=== PATIENT | male | born 1980 | race Caucasian/White ===

== ENCOUNTER 2016-04-24 10:36 | Emergency (ER) | payer OTHER ==
[2016-04-24 11:41] VITALS: BP 124/74
--- NOTE | 2016-04-24 12:02 | UC ---
Complaint Male HPI - HPI Summary HPI Summary: patient complaining of increased penile pain over the last week, has had a thick white discharge from the penis. denies fever or malaise, lowback pain or abdominal pain. His girlfriend has a yeast infection. - History of Current Complaint Chief Complaint: UCGU Stated Complaint: URINARY COMPLAINT Time Seen by Provider: 04/24/16 11:31 Hx Obtained From: Patient Onset/Duration: Sudden Onset, Lasting Days Timing: Constant Severity Initially: Mild Severity Currently: Moderate Pain Intensity: 6 Pain Scale Used: 0-10 Numeric Location: Penis Character: Burning Aggravating Factor(s): Voiding Alleviating Factor(s): Nothing - Risk Factors Testicular Torsion: Negative - Allergies/Home Medications Allergies/Adverse Reactions: Allergies Allergy/AdvReac Type Severity Reaction Status Date / Time Codeine Allergy Nausea And Verified 04/24/16 11:41 Vomiting Penicillins Allergy Rash Verified 04/24/16 11:41 red food dye #40 Allergy Unknown Uncoded 04/24/16 11:42 Reaction Details PMH/Surg Hx/FS Hx/Imm Hx Previously Healthy: Yes Endocrine History Of: Denies: Diabetes Cardiovascular History Of: Denies: Cardiac Disorders Respiratory History Of: Denies: COPD GI/ History Of: Denies: Gastroesophageal Reflux Other History Of: Negative For: HIV, Hepatitis B, Hepatitis C - Surgical History Surgical History: None - Family History Known Family History: Positive: None, Unknown Negative: Other - NO HISTORY OF GOUT, MRSA - Social History Alcohol Use: None Substance Use Type: Marijuana Substance Use Comment - Amount & Last Used: today; 3.5 gms daily Smoking Status (MU): Heavy Every Day Tobacco Smoker Amount Used/How Often: 1 ppd Length of Time of Smoking/Using Tobacco: 20 - Immunization History Most Recent Influenza Vaccination: 2014 Review of Systems Constitutional: Negative Skin: Negative Eyes: Negative ENT: Negative Respiratory: Negative Cardiovascular: Negative Gastrointestinal: Negative Genitourinary: Other - penile discharge Motor: Negative Musculoskeletal: Negative Neurological: Negative Psychological: Negative All Other Systems Reviewed And Are Negative: Yes Physical Exam Triage Information Reviewed: Yes Appearance: Well-Appearing, Well-Nourished, Pain Distress Vital Signs: Initial Vital Signs Temp 98.8 F 04/24/16 11:36 Pulse 59 04/24/16 11:36 Resp 18 04/24/16 11:36 BP 124/74 04/24/16 11:36 Eye Exam: Normal Eyes: Positive: Conjunctiva Clear ENT Exam: Normal ENT: Positive: Normal ENT inspection, Pharynx normal, TMs normal Dental Exam: Normal Neck exam: Normal Neck: Positive: Supple, Nontender, No Lymphadenopathy Respiratory Exam: Normal Respiratory: Positive: Chest non-tender, Lungs clear, Normal breath sounds Cardiovascular Exam: Normal Cardiovascular: Positive: RRR, No Murmur, Pulses Normal Abdominal Exam: Normal Abdomen Description: Positive: Nontender, No Organomegaly, Soft, Other: - white discharge from penis, no lesions noted, tip of penis is red, no testical pain Bowel Sounds: Positive: Present Musculoskeletal Exam: Normal Musculoskeletal: Positive: Strength Intact, ROM Intact, No Edema Neurological Exam: Normal Neurological: Positive: Alert, Muscle Tone Normal Psychological Exam: Normal Skin Exam: Normal Complaint Male Course/Dx - Course Course Of Treatment: hx obtained, exam performed, UA and GC/CL obtained. UA positive for leuks, treated for UTI and yeast, as his girlfriend has been struggling with a yeast infection. will await results of other tests. - Differential Dx/Diagnosis Differential Diagnosis/HQI/PQRI: Epididymitis, Testicular Torsion Provider Diagnoses: UTI. Nery Discharge - Discharge Plan Condition: Stable Disposition: HOME Patient Education Materials: Urinary Tract Infection in Men (ED) Referrals: Luba Javier MD [Primary Care Provider] -
== END 2016-04-24 12:24 | disposition home or self-care (01) ==
LOC: UCCORT 10:36
DX: B37.49 Other urogenital candidiasis (principal); F17.210 Nicotine dependence, cigarettes, uncomplicated; Z88.0 Allergy status to penicillin; Z91.02 Food additives allergy status
CPT/HCPCS: 87086; 87491; 87591; 99212; G0463

== ENCOUNTER 2016-04-25 15:44 | Emergency (ER) | payer OTHER ==
[2016-04-25 17:09] VITALS: BP 131/75
[2016-04-25] MEDS ORDERED: cefTRIAXone VIAL(*) 250 MG VIAL IM ONE (17:12)
[2016-04-25] MEDS ORDERED: Azithromycin TAB* 250 MG PO ONE (17:12)
[2016-04-25] MEDS ORDERED: Lidocaine 1% MPF* 2 ML VIAL ONE (17:17)
--- NOTE | 2016-04-25 17:21 | UC ---
Complaint Male HPI - HPI Summary HPI Summary: here a few days ago with dysuria. Treated for UTI, GC test came back positive. He denies prior history of GC. has no symptoms, but is in 3rd trimester of . - History of Current Complaint Chief Complaint: UCGU Stated Complaint: PERSONAL Time Seen by Provider: 04/25/16 17:12 Hx Obtained From: Patient Onset/Duration: Lasting Days - 5 Timing: Constant Severity Initially: Mild Location: Penis - dysuria Character: Burning Aggravating Factor(s): Voiding Alleviating Factor(s): Nothing Associated Signs And Symptoms: Positive: Negative - Risk Factors Testicular Torsion: Negative - Allergies/Home Medications Allergies/Adverse Reactions: Allergies Allergy/AdvReac Type Severity Reaction Status Date / Time Codeine Allergy Nausea And Verified 04/25/16 17:09 Vomiting Penicillins Allergy Rash Verified 04/25/16 17:09 red food dye #40 Allergy Unknown Uncoded 04/25/16 17:09 Reaction Details PMH/Surg Hx/FS Hx/Imm Hx Previously Healthy: Yes Endocrine History Of: Denies: Diabetes Cardiovascular History Of: Denies: Cardiac Disorders Respiratory History Of: Denies: COPD GI/ History Of: Denies: Gastroesophageal Reflux Other History Of: Negative For: HIV, Hepatitis B, Hepatitis C - Surgical History Surgical History: None - Family History Known Family History: Positive: None, Unknown - is unaware of any diseases in family Negative: Other - NO HISTORY OF GOUT, MRSA - Social History Occupation: Employed Full-time Lives: With Family Alcohol Use: None Substance Use Type: Marijuana Substance Use Comment - Amount & Last Used: today; 3.5 gms daily Smoking Status (MU): Heavy Every Day Tobacco Smoker Amount Used/How Often: 1 ppd Length of Time of Smoking/Using Tobacco: 20 - Immunization History Most Recent Influenza Vaccination: none Review of Systems Constitutional: Negative Skin: Negative Eyes: Negative ENT: Negative Respiratory: Negative Cardiovascular: Negative Gastrointestinal: Negative Genitourinary: Dysuria Motor: Negative Neurovascular: Negative Musculoskeletal: Negative Neurological: Negative Psychological: Negative All Other Systems Reviewed And Are Negative: Yes Physical Exam Triage Information Reviewed: Yes Appearance: Well-Appearing, No Pain Distress, Well-Nourished Vital Signs: Initial Vital Signs Temp 97.6 F 04/25/16 17:05 Pulse 86 04/25/16 17:05 Resp 17 04/25/16 17:05 BP 131/75 01/04/17 17:05 Pulse Ox 100 04/25/16 17:05 Vital Signs Reviewed: Yes Eye Exam: Normal Neck exam: Normal Respiratory Exam: Normal Cardiovascular Exam: Normal Abdominal Exam: Normal Abdomen Description: Positive: Nontender Musculoskeletal Exam: Normal Neurological Exam: Normal Psychological Exam: Normal Skin Exam: Normal Complaint Male Course/Dx - Course Course Of Treatment: IM Ceftriaxone and po azithromycin given. Stressed importance of having contact OB immediately to arrange treatment/testing - Differential Dx/Diagnosis Provider Diagnoses: gonorrhea Discharge - Discharge Plan Condition: Stable Disposition: HOME Patient Education Materials: Gonorrhea (ED) Referrals: Luba Javier MD [Primary Care Provider] - Additional Instructions: Your sexual partner should immediately notify her OB that she has possibly been exposed to gonorrhea. It must be treated before she goes into labor.
== END 2016-04-25 17:50 | disposition home or self-care (01) ==
LOC: UCCORT 15:44
DX: A54.9 Gonococcal infection, unspecified (principal); Z88.5 Allergy status to narcotic agent; Z88.0 Allergy status to penicillin; F17.210 Nicotine dependence, cigarettes, uncomplicated
CPT/HCPCS: 96372; 99212; A9270-GY; G0463; J0696